=== PATIENT | male | born 1995 | race Caucasian/White ===

== ENCOUNTER 2021-07-09 15:28 | Emergency (ER) | payer MEDICAID ==
[~2021-07-09] VITALS: Ht 177.8 cm; Wt 82.0 kg
[2021-07-09] MEDS ORDERED: CEPHALEXIN 250MG CAPSULE PO ONE (16:00)
[2021-07-09] MEDS ORDERED: IBUPROFEN 800MG TABLET PO ONE (16:00)
[2021-07-09] MEDS ORDERED: IBUP-2029 MT (16:11)
[2021-07-09] MEDS ORDERED: CEPH500C2 MT (16:11)
[2021-07-09 16:36] VITALS: BP 121/65
[2021-07-12 04:07] LABS: NEISSERIA GONORRHOEAE NAA Negative (Negative)
== END 2021-07-09 16:34 | disposition home or self-care (01) ==
LOC: ER 15:28
DX: L02.31 Cutaneous abscess of buttock (principal); Z20.2 Contact with and (suspected) exposure to infections with a predominantly sexual mode of transmission; Z98.890 Other specified postprocedural states
CPT/HCPCS: 86592; 86694; 86695; 86696; 87491; 87591; 99283